=== PATIENT | male | born 1990 | race African-American/Black ===

== ENCOUNTER 2022-01-14 10:35 | Emergency (ER) | payer SELFPAY ==
[~2022-01-14] VITALS: Ht 172.7 cm; Wt 130.9 kg
[2022-01-14] MEDS ORDERED: CYCLOBENZAPRINE10 MG PO (14:15)
[2022-01-14] MEDS ORDERED: NAPROXEN500 MG PO (14:15)
== END 2022-01-14 14:35 | disposition home or self-care (01) | DRG 552 ==
LOC: ED 10:35
DX: S16.1XXA Strain of muscle, fascia and tendon at neck level, initial encounter (principal); F17.290 Nicotine dependence, other tobacco product, uncomplicated; X58.XXXA Exposure to other specified factors, initial encounter